=== PATIENT | male | born 1990 | race Caucasian/White ===

== ENCOUNTER 2020-06-23 15:49 | Inpatient (IN) ==
[2020-06-23 17:32] LABS: Basophils # 0.1 10*3/uL (0.0-0.2); Basophils % 0.6 % (0.0-0.8); Eosinophils # 0.1 10*3/uL (0.0-0.87); Eosinophils % 0.9 % (0.00-10.9); Hematocrit 36.8 VOL% (42.0-52.0); Hemoglobin 12.3 GM/DL (14.0-18.0); Immature Granulocytes % 0.4 %; Immature Granulocytes Absolute 0.03 #; Lymphocytes % 24.8 % (21.2-54.2); Mean Corpuscular HGB Conc 33.4 GM/DL (32-36); Mean Corpuscular Volume 87.4 FL (87-102); Mean Platelet Volume 8.7 FL (9.6-12.0); Monocytes % 5.5 % (1.7-12.7); Neutrophils % 67.8 % (38.7-73.9); Platelet Count 367 T/CUMM (130-400); Red Blood Count 4.21 MC/CUMM (3.8-5.5); Red Cell Distribution Width 13.2 % (9.3-17.3); White Blood Count 8.2 T/CUMM (4-12)
[2020-06-23 17:59] LABS: Alanine Aminotransferase 13 U/L (16-61); Albumin 0.6 G/DL (3.4-5.0); Alkaline Phosphatase 86 U/L (45-117); Aspartate Amino Transferase 23 U/L (0-37); Bilirubin,Total < 0.39 MG/DL (0.2-1.0); Blood Urea Nitrogen 17 MG/DL (7-18); Calcium 7.9 MG/DL (8.5-10.1); Carbon Dioxide 22 MMOL/L (21-32); Estimated Glom Filtration Rate 70 ML/MIN; Glucose 86 MG/DL (74-106); Osmolality,Calculated 281.3 MOS/KG (273-304); Potassium 3.5 MMOL/L (3.5-5.1); Sodium 141 MMOL/L (136-145); Total Protein 5.1 G/DL (6.4-8.2)
[2020-06-23 19:55] LABS: INR 1.1; PT Patient Result 11.9 SECS (9.8-11.9)
[2020-06-23] MEDS ORDERED: LABETALOL 20 MG/4 ML SYRINGE IV STA (19:56)
[2020-06-23] MEDS ORDERED: FUROSEMIDE 100 MG/10 ML VIAL IV STA (20:15)
[2020-06-23 21:15] LABS: Bilirubin,Urine Negative (Negative); Blood, Urine Small mg/dL (Negative); Glucose,Urine (UA) 50 mg/dL (Negative); Ketones,Urine 20 mg/dL (Negative); Mucus,Urine Many /LPF (Occasional); Nitrite,Urine Negative (Negative); Protein,Urine >=500 MG/DL; RBC,Urine 25 /HPF (0-4); Urine Appearance CLOUDY (Clear); Urine Color Amber (Yellow); Urine Specific Gravity 1.058 (1.001-1.035); Urine Urobilinogen < 2.0 EU/DL (0.2-1.0); WBC,Urine 14 /HPF (0-6)
[2020-06-23] MEDS ORDERED: hydrALAZINE 20 MG/1 ML VIAL IV STA (21:45)
[2020-06-23] MEDS ORDERED: niCARdipine INJ 25 MG in SODIUM CHLORIDE 0.9% 240 ML IV SCH (22:00)
[2020-06-23] MEDS ORDERED: niCARdipine 25 MG/10 ML VIAL IV ONE (22:01)
[2020-06-23] MEDS ORDERED: LEVALBUTEROL 1.25 MG/3 ML NEB RESP TX STA (22:17)
[2020-06-23 22:58] LABS: Barbiturates Screen,Urine Negative (Negative); Benzodiazepines Screen,Urine Negative (Negative); Cannabinoid Screen,Urine Negative (Negative); Opiate Screen,Urine Negative (Negative); Phencyclidine Screen,Urine Negative (Negative)
[2020-06-24] MEDS: cefTRIAXone 1,000 MG in SYRINGE 1 EACH IV SCH ×2 (00:41→23:34)
[2020-06-24] MEDS ORDERED: hydrALAZINE 20 MG/1 ML VIAL IV PRN (01:08)
[2020-06-24] MEDS ORDERED: ONDANSETRON 4 MG/2 ML VIAL IV PRN (01:08)
[2020-06-24] MEDS ORDERED: ACETAMINOPHEN 325 MG TABLET PO PRN (01:08)
[2020-06-24] MEDS ORDERED: DEXTROSE 50% 25 GM/50 ML VIAL IV PRN (01:08)
[2020-06-24] MEDS ORDERED: DOCUSATE SODIUM 100 MG CAPSULE PO PRN (01:08)
[2020-06-24] MEDS ORDERED: GLUCAGON 1 MG VIAL IM PRN (01:08)
[2020-06-24] MEDS ORDERED: SKIN HEALING OINT (AQUAPHOR) 50 GM TUBE TOP PRN (02:00)
[2020-06-24] MEDS ORDERED: LEVALBUTEROL 1.25 MG/3 ML NEB RESP TX PRN (02:31)
[2020-06-24 05:53] LABS: Basophils # 0.1 10*3/uL (0.0-0.2); Basophils % 0.7 % (0.0-0.8); Eosinophils % 0.4 % (0.00-10.9); Hematocrit 35.9 VOL% (42.0-52.0); Immature Granulocytes % 0.5 %; Immature Granulocytes Absolute 0.04 #; Lymphocytes # 1.3 10*3/uL (1.4-4.0); Lymphocytes % 15.7 % (21.2-54.2); Mean Corpuscular HGB Conc 33.4 GM/DL (32-36); Mean Corpuscular Volume 86.9 FL (87-102); Mean Platelet Volume 9.5 FL (9.6-12.0); Monocytes % 3.1 % (1.7-12.7); Neutrophils % 79.6 % (38.7-73.9); Platelet Count 387 T/CUMM (130-400); Red Blood Count 4.13 MC/CUMM (3.8-5.5); Red Cell Distribution Width 13.3 % (9.3-17.3); White Blood Count 8.4 T/CUMM (4-12)
[2020-06-24 06:24] LABS: Alanine Aminotransferase 11 U/L (16-61); Albumin < 0.6 G/DL (3.4-5.0); Alkaline Phosphatase 90 U/L (45-117); Aspartate Amino Transferase 21 U/L (0-37); Blood Urea Nitrogen 17 MG/DL (7-18); Calcium 7.9 MG/DL (8.5-10.1); Carbon Dioxide 16 MMOL/L (21-32); Estimated Glom Filtration Rate 73 ML/MIN; Glucose 103 MG/DL (74-106); HDL Cholesterol 39 MG/DL (40-60); Osmolality,Calculated 274.8 MOS/KG (273-304); Potassium 3.6 MMOL/L (3.5-5.1); Risk Ratio 11.05; Sodium 137 MMOL/L (136-145); Triglycerides 140 MG/DL (2-150)
[2020-06-24] MEDS: FUROSEMIDE 40 MG/4 ML VIAL IV SCH ×2 (09:51→16:50)
[2020-06-24] MEDS: CLOTRIMAZOLE/BETAMETHASONE CREAM 15 GM TUBE TOP SCH ×2 (09:51→21:12)
[2020-06-24] MEDS ORDERED: LEVALBUTEROL 0.63 MG/3 ML NEB RESP TX PRN (13:44)
[2020-06-24] MEDS ORDERED: ZALEPLON 5 MG CAPSULE PO PRN (13:46)
[2020-06-24 16:31] LABS: HIV Antigen/Antibody Result Nonreactive (Nonreactive); Hepatitis B Core IgM Quant 0.16 Index; Hepatitis B Surface Ag Quant < 0.10 Index; Hepatitis B Surface Ag Result Non-Reactive (NonReactive); Hepatitis C Virus Ab Result Non-Reactive (NonReactive)
[2020-06-24] MEDS: LEVALBUTEROL 1.25 MG/3 ML NEB RESP TX SCH (19:32)
[2020-06-25] MEDS: LEVALBUTEROL 1.25 MG/3 ML NEB RESP TX SCH ×4 (02:20→19:37)
[2020-06-25 05:04] LABS: Basophils # 0.1 10*3/uL (0.0-0.2); Basophils % 0.9 % (0.0-0.8); Eosinophils # 0.3 10*3/uL (0.0-0.87); Hematocrit 29.8 VOL% (42.0-52.0); Hemoglobin 10.1 GM/DL (14.0-18.0); Immature Granulocytes % 0.3 %; Immature Granulocytes Absolute 0.02 #; Lymphocytes # 3.1 10*3/uL (1.4-4.0); Mean Corpuscular HGB Conc 33.9 GM/DL (32-36); Mean Corpuscular Volume 86.4 FL (87-102); Mean Platelet Volume 9.1 FL (9.6-12.0); Monocytes % 4.9 % (1.7-12.7); Neutrophils % 45.9 % (38.7-73.9); Platelet Count 334 T/CUMM (130-400); Red Blood Count 3.45 MC/CUMM (3.8-5.5); Red Cell Distribution Width 13.8 % (9.3-17.3)
[2020-06-25 05:24] LABS: Albumin 0.6 G/DL (3.4-5.0); Calcium 7.6 MG/DL (8.5-10.1); Osmolality,Calculated 280.4 MOS/KG (273-304); Potassium 3.2 MMOL/L (3.5-5.1); Total Protein 4.4 G/DL (6.4-8.2)
[2020-06-25 08:31] LABS: Total Protein (Chem) 4.5 G/DL (6.4-8.3)
[2020-06-25] MEDS: FUROSEMIDE 40 MG/4 ML VIAL IV SCH ×2 (08:55→16:09)
[2020-06-25 09:26] LABS: Albumin (SPE) 0.9 G/DL (3.2-5.3); Albumin (SPE) Rel % 20.1 %; Alpha 1 (SPE) 0.2 G/DL (0.1-0.4); Alpha 1 (SPE) Rel % 5.5 %; Alpha 2 (SPE) 1.9 G/DL (0.4-1.0); Alpha 2 (SPE) Rel % 42.7 %; Beta (SPE) 1.2 G/DL (0.5-1.1); Beta (SPE) Rel % 25.8 %; Gamma (SPE) 0.3 G/DL (0.7-1.7); Gamma (SPE) Rel % 5.9 %
[2020-06-25] MEDS: CLOTRIMAZOLE/BETAMETHASONE CREAM 15 GM TUBE TOP SCH ×2 (09:41→20:59)
[2020-06-25 10:46] LABS: Amylase,Body Fluid 4 U/L; Glucose,Pleural Fluid 108 MG/DL; LDH,Body Fluid 32 U/L; Total Protein,Body Fluid < 1.0 G/DL
[2020-06-25 11:03] LABS: Lymphocytes,Pleural Fluid 74 %; Monocytes,Pleural Fluid 14 %; Neutrophils,Pleural Fluid 12 %
[2020-06-25 11:04] LABS: RBC,Pleural Fluid 48 T/CUMM
[2020-06-25 20:34] LABS: Total Protein 24 Hr Ur Result 5600 MG/24HR (0-149.1); Total Volume,Urine 400 ML (400-2000)
[2020-06-26] MEDS: cefTRIAXone 1,000 MG in SYRINGE 1 EACH IV SCH (00:25)
[2020-06-26] MEDS: LEVALBUTEROL 1.25 MG/3 ML NEB RESP TX SCH ×4 (02:27→20:05)
[2020-06-26 05:49] LABS: Basophils % 0.7 % (0.0-0.8); Eosinophils # 0.2 10*3/uL (0.0-0.87); Eosinophils % 3.7 % (0.00-10.9); Hematocrit 28.7 VOL% (42.0-52.0); Hemoglobin 9.7 GM/DL (14.0-18.0); Immature Granulocytes % 0.3 %; Immature Granulocytes Absolute 0.02 #; Lymphocytes # 2.9 10*3/uL (1.4-4.0); Lymphocytes % 47.7 % (21.2-54.2); Mean Corpuscular HGB Conc 33.8 GM/DL (32-36); Mean Corpuscular Volume 88.6 FL (87-102); Mean Platelet Volume 9.9 FL (9.6-12.0); Monocytes % 5.7 % (1.7-12.7); Neutrophils % 41.9 % (38.7-73.9); Platelet Count 291 T/CUMM (130-400); Red Blood Count 3.24 MC/CUMM (3.8-5.5); Red Cell Distribution Width 13.7 % (9.3-17.3)
[2020-06-26 06:13] LABS: Calcium 7.6 MG/DL (8.5-10.1); Osmolality,Calculated 280.4 MOS/KG (273-304); Potassium 3.2 MMOL/L (3.5-5.1)
[2020-06-26] MEDS: FUROSEMIDE 40 MG/4 ML VIAL IV SCH ×2 (08:21→16:40)
[2020-06-26] MEDS: CLOTRIMAZOLE/BETAMETHASONE CREAM 15 GM TUBE TOP SCH ×2 (08:21→21:10)
[2020-06-26 09:54] LABS: Albumin (UPE) 3673.6 MG/24H; Albumin (UPE) Rel % 65.6 %; Alpha 1 (UPE) 582.4 MG/24H
[2020-06-26 09:55] LABS: Alpha 1 (UPE) Rel % 10.4 %; Beta (UPE) 543.2 MG/24H; Beta (UPE) Rel % 9.7 %; Gamma (UPE) 352.8 MG/24H; Gamma (UPE) Rel % 6.3 %
[2020-06-26] MEDS ORDERED: MAGNESIUM SULF RIDER 4 GM in PREMIX 1 EACH IV PRN (10:47)
[2020-06-26] MEDS ORDERED: POTASSIUM CHLORIDE RIDER 10 MEQ in PREMIX 1 EACH IV PRN (10:47)
[2020-06-26] MEDS ORDERED: MAGNESIUM SULF RIDER 2 GM in PREMIX 1 EACH IV PRN (10:47)
[2020-06-26] MEDS ORDERED: DIAZEPAM 5 MG TABLET PO ONE (12:30)
[2020-06-26] MEDS: metOLazone 5 MG TABLET PO SCH (21:10)
[2020-06-27] MEDS: cefTRIAXone 1,000 MG in SYRINGE 1 EACH IV SCH (00:23)
[2020-06-27] MEDS: LEVALBUTEROL 1.25 MG/3 ML NEB RESP TX SCH ×4 (00:49→19:32)
[2020-06-27 06:51] LABS: Basophils % 0.5 % (0.0-0.8); Eosinophils # 0.2 10*3/uL (0.0-0.87); Eosinophils % 3.9 % (0.00-10.9); Hematocrit 29.2 VOL% (42.0-52.0); Hemoglobin 9.8 GM/DL (14.0-18.0); Immature Granulocytes % 0.3 %; Immature Granulocytes Absolute 0.02 #; Lymphocytes # 2.6 10*3/uL (1.4-4.0); Lymphocytes % 44.2 % (21.2-54.2); Mean Corpuscular HGB Conc 33.6 GM/DL (32-36); Mean Corpuscular Volume 87.7 FL (87-102); Mean Platelet Volume 9.1 FL (9.6-12.0); Monocytes % 5.6 % (1.7-12.7); Neutrophils % 45.5 % (38.7-73.9); Platelet Count 309 T/CUMM (130-400); Red Blood Count 3.33 MC/CUMM (3.8-5.5); Red Cell Distribution Width 13.8 % (9.3-17.3); White Blood Count 5.9 T/CUMM (4-12)
[2020-06-27 07:07] LABS: Calcium 7.6 MG/DL (8.5-10.1); Osmolality,Calculated 276.5 MOS/KG (273-304); Potassium 2.8 MMOL/L (3.5-5.1)
[2020-06-27] MEDS: POTASSIUM CHLORIDE 20 MEQ TABLET PO SCH ×2 (08:20→14:49)
[2020-06-27] MEDS: FUROSEMIDE 40 MG/4 ML VIAL IV SCH ×2 (08:20→16:34)
[2020-06-27] MEDS: metOLazone 5 MG TABLET PO SCH ×2 (09:55→21:11)
[2020-06-27] MEDS: CLOTRIMAZOLE/BETAMETHASONE CREAM 15 GM TUBE TOP SCH ×2 (09:55→21:12)
[2020-06-28] MEDS: cefTRIAXone 1,000 MG in SYRINGE 1 EACH IV SCH (00:23)
[2020-06-28 06:18] LABS: Basophils % 0.7 % (0.0-0.8); Eosinophils # 0.3 10*3/uL (0.0-0.87); Eosinophils % 4.6 % (0.00-10.9); Hematocrit 29.1 VOL% (42.0-52.0); Hemoglobin 9.8 GM/DL (14.0-18.0); Immature Granulocytes % 0.2 %; Immature Granulocytes Absolute 0.01 #; Lymphocytes # 2.2 10*3/uL (1.4-4.0); Lymphocytes % 38.9 % (21.2-54.2); Mean Corpuscular HGB Conc 33.7 GM/DL (32-36); Mean Corpuscular Volume 87.4 FL (87-102); Mean Platelet Volume 9.2 FL (9.6-12.0); Monocytes % 7.7 % (1.7-12.7); Neutrophils % 47.9 % (38.7-73.9); Platelet Count 297 T/CUMM (130-400); Red Blood Count 3.33 MC/CUMM (3.8-5.5); Red Cell Distribution Width 13.6 % (9.3-17.3); White Blood Count 5.7 T/CUMM (4-12)
[2020-06-28 06:48] LABS: Calcium 7.9 MG/DL (8.5-10.1); Osmolality,Calculated 276.5 MOS/KG (273-304); Potassium 2.8 MMOL/L (3.5-5.1)
[2020-06-28] MEDS: LEVALBUTEROL 1.25 MG/3 ML NEB RESP TX SCH ×4 (07:09→19:24)
[2020-06-28] MEDS: metOLazone 5 MG TABLET PO SCH ×2 (09:00→21:18)
[2020-06-28] MEDS: FUROSEMIDE 40 MG/4 ML VIAL IV SCH ×2 (09:01→15:30)
[2020-06-28] MEDS: CLOTRIMAZOLE/BETAMETHASONE CREAM 15 GM TUBE TOP SCH ×2 (09:05→21:18)
[2020-06-28] MEDS: POTASSIUM CHLORIDE 20 MEQ TABLET PO SCH ×3 (12:45→21:18)
[2020-06-29] MEDS: LEVALBUTEROL 1.25 MG/3 ML NEB RESP TX SCH ×4 (00:05→19:09)
[2020-06-29 05:52] LABS: Basophils # 0.1 10*3/uL (0.0-0.2); Basophils % 0.7 % (0.0-0.8); Calcium 8.1 MG/DL (8.5-10.1); Eosinophils # 0.3 10*3/uL (0.0-0.87); Eosinophils % 4.2 % (0.00-10.9); Hemoglobin 10.4 GM/DL (14.0-18.0); Immature Granulocytes % 0.3 %; Immature Granulocytes Absolute 0.02 #; Lymphocytes # 2.9 10*3/uL (1.4-4.0); Lymphocytes % 41.8 % (21.2-54.2); Mean Corpuscular HGB Conc 32.5 GM/DL (32-36); Mean Corpuscular Volume 89.1 FL (87-102); Mean Platelet Volume 9.1 FL (9.6-12.0); Monocytes % 7.1 % (1.7-12.7); Neutrophils % 45.9 % (38.7-73.9); Osmolality,Calculated 274.7 MOS/KG (273-304); Platelet Count 341 T/CUMM (130-400); Potassium 3.2 MMOL/L (3.5-5.1); Red Blood Count 3.59 MC/CUMM (3.8-5.5); Red Cell Distribution Width 13.6 % (9.3-17.3); White Blood Count 6.9 T/CUMM (4-12)
[2020-06-29] MEDS: POTASSIUM CHLORIDE 20 MEQ TABLET PO PRN (06:05)
[2020-06-29] MEDS: POTASSIUM CHLORIDE 20 MEQ TABLET PO SCH ×3 (08:21→16:06)
[2020-06-29] MEDS: FUROSEMIDE 40 MG/4 ML VIAL IV SCH ×2 (08:21→16:06)
[2020-06-29] MEDS: metOLazone 5 MG TABLET PO SCH ×2 (08:22→21:13)
[2020-06-29] MEDS: CLOTRIMAZOLE/BETAMETHASONE CREAM 15 GM TUBE TOP SCH ×2 (10:38→21:15)
[2020-06-30] MEDS: LEVALBUTEROL 1.25 MG/3 ML NEB RESP TX SCH ×4 (01:03→20:15)
[2020-06-30 05:22] LABS: Basophils # 0.1 10*3/uL (0.0-0.2); Basophils % 0.8 % (0.0-0.8); Eosinophils # 0.3 10*3/uL (0.0-0.87); Eosinophils % 4.4 % (0.00-10.9); Hematocrit 29.6 VOL% (42.0-52.0); Hemoglobin 9.8 GM/DL (14.0-18.0); Immature Granulocytes % 0.2 %; Immature Granulocytes Absolute 0.01 #; Lymphocytes # 2.5 10*3/uL (1.4-4.0); Lymphocytes % 41.2 % (21.2-54.2); Mean Corpuscular HGB Conc 33.1 GM/DL (32-36); Mean Corpuscular Volume 88.1 FL (87-102); Mean Platelet Volume 9.2 FL (9.6-12.0); Monocytes % 7.2 % (1.7-12.7); Neutrophils % 46.2 % (38.7-73.9); Platelet Count 309 T/CUMM (130-400); Red Blood Count 3.36 MC/CUMM (3.8-5.5); Red Cell Distribution Width 13.6 % (9.3-17.3); White Blood Count 6.1 T/CUMM (4-12)
[2020-06-30 05:39] LABS: Calcium 7.9 MG/DL (8.5-10.1); Osmolality,Calculated 274.7 MOS/KG (273-304)
[2020-06-30] MEDS: metOLazone 5 MG TABLET PO SCH ×2 (09:29→20:44)
[2020-06-30] MEDS: POTASSIUM CHLORIDE 20 MEQ TABLET PO PRN ×2 (09:29→20:44)
[2020-06-30] MEDS: FUROSEMIDE 40 MG/4 ML VIAL IV SCH ×2 (09:29→16:35)
[2020-06-30] MEDS: CLOTRIMAZOLE/BETAMETHASONE CREAM 15 GM TUBE TOP SCH ×2 (09:30→20:49)
[2020-07-01] MEDS: LEVALBUTEROL 1.25 MG/3 ML NEB RESP TX SCH ×4 (00:19→19:27)
[2020-07-01 05:25] LABS: Basophils % 0.6 % (0.0-0.8); Eosinophils # 0.3 10*3/uL (0.0-0.87); Eosinophils % 4.5 % (0.00-10.9); Hematocrit 30.2 VOL% (42.0-52.0); Immature Granulocytes % 0.3 %; Immature Granulocytes Absolute 0.02 #; Lymphocytes # 2.5 10*3/uL (1.4-4.0); Lymphocytes % 40.2 % (21.2-54.2); Mean Corpuscular HGB Conc 33.1 GM/DL (32-36); Mean Corpuscular Volume 88.8 FL (87-102); Monocytes % 6.9 % (1.7-12.7); Neutrophils % 47.5 % (38.7-73.9); Platelet Count 301 T/CUMM (130-400); Red Cell Distribution Width 13.8 % (9.3-17.3); White Blood Count 6.3 T/CUMM (4-12)
[2020-07-01 05:36] LABS: Calcium 7.9 MG/DL (8.5-10.1); Potassium 3.3 MMOL/L (3.5-5.1)
[2020-07-01 05:43] LABS: Hypochromasia Slight; Microcytosis Slight; Platelet Estimate Adequate
[2020-07-01] MEDS: FUROSEMIDE 40 MG/4 ML VIAL IV SCH ×2 (09:43→15:26)
[2020-07-01] MEDS: metOLazone 5 MG TABLET PO SCH ×2 (09:44→21:15)
[2020-07-01] MEDS: CLOTRIMAZOLE/BETAMETHASONE CREAM 15 GM TUBE TOP SCH ×2 (09:44→21:16)
[2020-07-01] MEDS: POTASSIUM CHLORIDE 20 MEQ TABLET PO PRN ×3 (09:44→17:45)
[2020-07-01] MEDS: ENOXAPARIN 40 MG/0.4 ML SYRINGE SUBCUT SCH ×2 (12:06→21:15)
[2020-07-02] MEDS: LEVALBUTEROL 1.25 MG/3 ML NEB RESP TX SCH ×3 (01:30→13:00)
[2020-07-02 05:32] LABS: Basophils # 0.1 10*3/uL (0.0-0.2); Basophils % 0.8 % (0.0-0.8); Eosinophils # 0.3 10*3/uL (0.0-0.87); Eosinophils % 4.6 % (0.00-10.9); Hematocrit 27.7 VOL% (42.0-52.0); Hemoglobin 9.3 GM/DL (14.0-18.0); Immature Granulocytes % 0.3 %; Immature Granulocytes Absolute 0.02 #; Lymphocytes # 2.6 10*3/uL (1.4-4.0); Lymphocytes % 42.7 % (21.2-54.2); Mean Corpuscular HGB Conc 33.6 GM/DL (32-36); Mean Corpuscular Volume 88.2 FL (87-102); Mean Platelet Volume 9.2 FL (9.6-12.0); Monocytes % 7.7 % (1.7-12.7); Neutrophils % 43.9 % (38.7-73.9); Platelet Count 310 T/CUMM (130-400); Red Blood Count 3.14 MC/CUMM (3.8-5.5); Red Cell Distribution Width 13.8 % (9.3-17.3); White Blood Count 6.1 T/CUMM (4-12)
[2020-07-02 06:09] LABS: Osmolality,Calculated 273.7 MOS/KG (273-304); Potassium 3.1 MMOL/L (3.5-5.1)
[2020-07-02] MEDS ORDERED: predniSONE 20 MG TABLET PO SCH (09:00)
[2020-07-02] MEDS: metOLazone 5 MG TABLET PO SCH (09:29)
[2020-07-02] MEDS: ENOXAPARIN 40 MG/0.4 ML SYRINGE SUBCUT SCH (09:29)
[2020-07-02] MEDS: FUROSEMIDE 40 MG/4 ML VIAL IV SCH (09:30)
[2020-07-02] MEDS: POTASSIUM CHLORIDE 20 MEQ TABLET PO PRN ×4 (10:04→15:30)
[2020-07-02] MEDS: CLOTRIMAZOLE/BETAMETHASONE CREAM 15 GM TUBE TOP SCH (10:05)
[2020-07-02 10:58] VITALS: BP 141/81
[2020-07-02 12:31] LABS: Protein S Ag (Free) 76 % (65 - 160)
[2020-07-07 12:01] LABS: Protein C Antigen 134 % (70-150)
== END 2020-07-02 16:20 | disposition home or self-care (01) | DRG 698 ==
LOC: N.ED 15:49 → N.EDINP 15:49 → N.3E 06-24 01:20 → SUATTDRO 06-24 13:30
PROVIDERS: ADMIT Internal Medicine; ATTEND Hospitalist
PROC: IRTHORA (2020-06-25 09:28)